=== PATIENT | male | born 1985 | race Caucasian/White ===

== ENCOUNTER 2018-12-01 14:06 | Outpatient (CLI) | payer OTHER ==
--- NOTE | 2018-12-01 14:57 | RAD ---
EXAM: 3 views of the left foot HISTORY: Foot pain COMPARISON: None FINDINGS: 3 views of the left foot shows no evidence of acute fracture or dislocation. No soft tissue swelling is seen. No degenerative changes are present. IMPRESSION: No evidence of acute osseous abnormality.
== END 2018-12-01 14:07 | disposition home or self-care (01) ==
LOC: NAV RAD 14:06
PROVIDERS: ATTEND Family Medicine
DX: M79.672 Pain in left foot (principal)